=== PATIENT | female | born 1950 | race Caucasian/White ===

== ENCOUNTER 2017-01-15 13:37 | Observation (INO) | payer MEDICARE, BC ==
[~2017-01-15] VITALS: Ht 167.6 cm; Wt 90.7 kg
[2017-01-15] MEDS ORDERED: POTASSIUM CHLO20 ME2 PO (20:42)
[2017-01-15] MEDS ORDERED: COREG 3.125M3.125 MG PO (20:43)
[2017-01-15] MEDS ORDERED: NITROSTAT 0.40.4 MG SL (20:43)
[2017-01-15] MEDS ORDERED: ZESTRIL2.5 MG PO (20:44)
[2017-01-15] MEDS ORDERED: MIRAPEX1 MG PO (20:44)
[2017-01-15] MEDS ORDERED: NAPROSYN500 MG PO (20:44)
[2017-01-15] MEDS ORDERED: SPIRONOLACTONE25 MG PO (20:44)
[2017-01-16 07:39] LABS: HEMOGLOBIN 13.3 gm/dl (12.3-15.3); RED BLOOD COUNT 4.32 M/UL (4.00-5.10); WHITE BLOOD COUNT 7.5 K/UL (4.5-11.0)
[2017-01-16 08:00] LABS: BUN/CREATININE RATIO 31 (0-10)
[2017-01-16] MEDS ORDERED: NAPROXEN500 MG PO (19:30)
== END 2017-01-16 19:50 | disposition home or self-care (01) ==
LOC: MED SURG 4 13:37 → ZEROF 15:54 → MED SURG 4 15:54
PROVIDERS: ADMIT Family Medicine
DX: R07.9 Chest pain, unspecified (principal); I10 Essential (primary) hypertension; E66.9 Obesity, unspecified; R79.89 Other specified abnormal findings of blood chemistry; G25.81 Restless legs syndrome; R20.9 Unspecified disturbances of skin sensation; M81.0 Age-related osteoporosis without current pathological fracture; E78.5 Hyperlipidemia, unspecified; Z79.899 Other long term (current) drug therapy; Z79.82 Long term (current) use of aspirin; Z68.32 Body mass index [BMI] 32.0-32.9, adult
CPT/HCPCS: ECHO; 36415; 71010; 78452; 80048; 80061; 82550; 82553; 83036; 84484; 85025; 93005; 93017; 93306; A9502; G0378; G0379; J2785